=== PATIENT | female | born 1955 | race Caucasian/White ===

== ENCOUNTER 2019-12-24 15:19 | Emergency (ER) | payer MEDICARE, OTHER ==
[~2019-12-24] VITALS: Ht 165.1 cm; Wt 59.9 kg
[~2019-12-24 15:19] MED LIST: CALC-20 PO; MULT1CAP34 PO
--- NOTE | 2019-12-24 15:44 | NUR ---
PT IS GONE TO RADIOLOGY
--- NOTE | 2019-12-24 15:57 | NUR ---
Note edis in ED - 12/24/19 at 1557 by [email or web address] LEFT FOR RADIOLOGY VIA WC.
[2019-12-24] MEDS ORDERED: IBUPROFEN 600 MG TABLET PO ONE (16:00)
[2019-12-24] MEDS ORDERED: IBUPROFEN 400 MG TABLET ONE (16:28)
--- NOTE | 2019-12-24 17:35 | NUR ---
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 PT AMBULATED OUT WITH A STEADY GAIT. Patient discharged to home in stable condition. Written and verbal after care instructions given. Patient verbalizes understanding of instruction. PT'S CAREGIVER IS DRIVING PT HOME. VSS
[2019-12-24 17:36] VITALS: BP 128/72
== END 2019-12-24 17:36 | disposition home or self-care (01) ==
LOC: ER 15:20
DX: S82.091A Other fracture of right patella, initial encounter for closed fracture (principal); Z79.899 Other long term (current) drug therapy; W03.XXXA Other fall on same level due to collision with another person, initial encounter; Y93.89 Activity, other specified; Y92.512 Supermarket, store or market as the place of occurrence of the external cause; Y99.8 Other external cause status
CPT/HCPCS: 73564-TC